=== PATIENT | female | born 1955 | race Caucasian/White ===

== ENCOUNTER 2021-03-03 13:56 | Emergency (ER) | payer MEDICARE ==
--- NOTE | 2021-03-03 15:01 | EDM.PDOC ---
ED HPI GENERAL MEDICAL PROBLEM - General Chief Complaint: Skin Complaint Stated Complaint: POISON BUZZ ON ARMS, LEGS AND FACE Time Seen by Provider: 03/03/21 14:45 Source of Information: Reports: Patient, RN History Limitations: Reports: No Limitations - History of Present Illness INITIAL COMMENTS - FREE TEXT/NARRATIVE: Patient with very extreme exposure to poison buzz. Patient is covered and had a toe with small blisterlike formations. She is concerned as she is now have some near her left eye. Pain and itch from irritation is becoming unbearable. Patient does not have a tub where she can do and oatmeal bath or soak Onset Date: 03/01/21 Duration: Constant Location: Reports: Head, Face, Neck, Chest, Upper Extremity, Left, Upper Extremity, Right, Lower Extremity, Left, Lower Extremity, Right, Generalized (Pain and itch from raised fluid-filled blister formations) Quality: Reports: Burning, Other (Itch) Severity: Moderate Improves with: Reports: None Worsens with: Reports: None Context: Reports: Other (Contact with poison buzz plant) Associated Symptoms: Reports: No Other Symptoms Treatments [employer]OR: Reports: Other (see below) (None) - Related Data Allergies Allergy/AdvReac Type Severity Reaction Status Date / Time No Known Allergies Allergy Verified 03/03/21 14:38 Home Meds: Home Meds predniSONE [Prednisone] 20 mg PO DAILY #20 tablet 03/03/21 [Rx] Past Medical History HEENT History: Reports: Impaired Vision HAT FORMER History: Reports: Social & Family History - Tobacco Use Tobacco Use Status *Q: Never Tobacco User - Caffeine Use Caffeine Use: Reports: Coffee ED ROS GENERAL - Review of Systems Review Of Systems: See Below Constitutional: Reports: No Symptoms HEENT: Reports: No Symptoms Respiratory: Reports: No Symptoms Cardiovascular: Reports: No Symptoms GI/Abdominal: Reports: No Symptoms : Reports: No Symptoms Musculoskeletal: Reports: No Symptoms Skin: Reports: Pruritis, Erythema, Urticaria, Other (Multiple fluid-filled raised blisters from head to toe) Neurological: Reports: No Symptoms Psychiatric: Reports: No Symptoms Hematologic/Lymphatic: Reports: No Symptoms ED EXAM, SKIN/RASH Exam: See Below Exam Limited By: No Limitations General Appearance: Alert, Moderate Distress Skin: Warm, Erythema, Excoriations, Rash, Other (Multiple fluid-filled blister formations, poison buzz from head to toe.) Location, Skin: Head, Face, Neck, Chest, Abdomen, Back, Upper Extremity, Right, Upper Extremity, Left, Lower Extremity, Right, Lower Extremity, Left, Generalized Characteristics: Bullous, Erythematous Associated features: Warmth, Tenderness, Inflammation, Weeping Course - Vital Signs Last Recorded V/S: Last Vital Signs Temp 36.8 C 03/03/21 14:38 Pulse 74 03/03/21 14:38 Resp 16 03/03/21 14:38 BP 125/70 03/03/21 14:38 Pulse Ox 100 03/03/21 14:38 - Orders/Labs/Meds Meds: Medications Discontinued Medications Generic Name Dose Route Start Last Admin Trade Name Freq PRN Reason Stop Dose Admin Triamcinolone Acetonide 40 mg 03/03/21 15:05 03/03/21 15:14 Triamcinolone Acetonide 40 Mg/Ml 1 Ml Sdv IM 03/03/21 15:06 40 mg ASDIRECTED ONE Administration - Re-Assessments/Exams Free Text/Narrative Re-Assessment/Exam: 03/03/21 15:01 Reviewed with patient possible systemic approach to poison buzz. Will provide Kenalog injection today with short-term prednisone. If rash gets to eye or becomes infected she needs to return to clinic immediately. She may use calamine lotion, oatmeal soak or paste. Departure - Departure Time of Disposition: 15:23 Disposition: Home, Self-Care 01 Condition: Fair Clinical Impression: Poison buzz - Discharge Information *PRESCRIPTION DRUG MONITORING PROGRAM REVIEWED*: Not Applicable *COPY OF PRESCRIPTION DRUG MONITORING REPORT IN PATIENT SHALONDA: Not Applicable Prescriptions: predniSONE [Prednisone] 20 mg PO DAILY #20 tablet Instructions: Poison Buzz Dermatitis Referrals: PCP,None [Primary Care Provider] - Forms: ED Department Discharge Additional Instructions: Take prednisone daily until blister formation starts to crust over and healing process. Care Plan Goals: Prevent infection keep areas clean and dry. Sepsis Event Note (ED) - Evaluation Sepsis Screening Result: No Definite Risk - Focused Exam Vital Signs: Vital Signs Temp Pulse Resp BP Pulse Ox 03/03/21 14:38 36.8 C 74 16 125/70 100 03/03/21 14:32 36.8 C 74 16 125/70 100 - Assessment/Plan Last 24 Hours: Poison buzz Assessment:: Poison buzz Plan: Use oatmeal paste or soak as needed to promote comfort. Take prednisone daily with food and tablets for formation dries and crusts over
[2021-03-03] MEDS ORDERED: Triamcinolone Acetonide 40 MG/ML 1 ML SDV IM ONE (15:05)
== END 2021-03-03 15:23 | disposition home or self-care (01) ==
LOC: JP.ED 13:56
DX: L23.7 Allergic contact dermatitis due to plants, except food (principal)
CPT/HCPCS: 96372; 99283; J3301